=== PATIENT | female | born 1985 | race Caucasian/White ===

== ENCOUNTER 2016-10-12 08:22 | Emergency (ER) | payer BC ==
[~2016-10-12] VITALS: Ht 157.5 cm; Wt 53.1 kg
[2016-10-12 08:25] VITALS: BP 113/78; PULSE 88; RESP 16; TEMP 98.8; O2SAT 99
[2016-10-12 08:44] LABS: BLOOD, URINE LARGE (NEG); GLUCOSE,URINE NEG (NEG); KETONE, URINE NEG (NEG); NITRITE,URINE NEG (NEG)
[2016-10-12] MEDS ORDERED: ACETAMINOPHEN 325 MG TAB PO ONE (08:45)
[2016-10-12] MEDS ORDERED: ONDANSETRON ODT 4 MG TAB PO ONE (08:45)
--- NOTE | 2016-10-12 08:45 | PD ---
HPI Chief Complaint: Flank/Kidney Pain Time Seen by Provider: 08:37 Travel History International Travel<30 days: No Contact w/Intl Traveler<30days: No Traveled to known affect area: No History of Present Illness HPI This 31-year-old female is complaining of left flank pain. She says she woke up this morning around 5:30 with the pain. She had a similar pain 2 days ago. She has a history of kidney infection about 10 years ago. She is not aware of fever. She did have some chills this morning. She is a bit nauseated. She is currently breast-feeding a 6-month-old child PFSH Past Medical History Hx Anticoagulant Therapy: No Diabetes: No ?: Not Social History Tobacco Use: No Allergies-Medications (Allergen,Severity, Reaction): Coded Allergies: No Known Allergies (Unverified , 10/12/16) Reported Meds & Prescriptions Reported Meds & Active Scripts Active Reported Multivitamin Adults (Multiple Vitamins W/ Minerals) 1 Tab 1 Tab PO DAILY Review of Systems General / Constitutional: Positive: Chills, No: Fever Eyes: No: Diploplia, Blurred Vision HENT: No: Headaches, Vertigo Cardiovascular: No: Chest Pain or Discomfort, Palpitations Respiratory: No: Cough Gastrointestinal: Positive: Nausea, No: Vomiting, Diarrhea Genitourinary: Positive: Flank Pain Musculoskeletal: No: Myalgias, Arthralgias Skin: No Rash Neurologic: No: Weakness Psychiatric: No: Anxiety Endocrine: No: Heat Intolerance Physical Exam Narrative GENERAL: Well-developed female SKIN: Focused skin assessment warm/dry. HEAD: Atraumatic. Normocephalic. EYES: Pupils equal and round. No scleral icterus. No injection or drainage. ENT: No nasal bleeding or discharge. Mucous membranes pink and moist. NECK: Trachea midline. No JVD. CARDIOVASCULAR: Regular rate and rhythm. No murmur appreciated. RESPIRATORY: No accessory muscle use. Clear to auscultation. Breath sounds equal bilaterally. GASTROINTESTINAL: Abdomen soft, some left flank tenderness without guarding or rigidity, nondistended. Hepatic and splenic margins not palpable. MUSCULOSKELETAL: No obvious deformities. No clubbing. No cyanosis. No edema. NEUROLOGICAL: Awake and alert. No obvious cranial nerve deficits. Motor grossly within normal limits. Normal speech. PSYCHIATRIC: Appropriate mood and affect; insight and judgment normal. Data Data Last Documented VS Vital Signs Date Time Temp Pulse Resp B/P Pulse Ox O2 Delivery O2 Flow Rate FiO2 10/12/16 09:30 16 10/12/16 08:25 98.8 88 113/78 99 Orders Urinalysis - C+S If Indicated (10/12/16 08:27) Ed Urine Pregnancytest Poc (10/12/16 08:27) Ondansetron Odt (Zofran Odt) (10/12/16 08:45) Acetaminophen (Tylenol) (10/12/16 08:45) Ct Abd/Pel W/O Iv Contrast (10/12/16 09:00) Ibuprofen (Motrin) (10/12/16 09:15) Complete Blood Count With Diff (10/12/16 09:20) Basic Metabolic Panel (Bmp) (10/12/16 09:20) Labs Laboratory Tests Test 10/12/16 10/12/16 08:35 09:00 Urine Collection Type CLEAN CATCH Urine Color YELLOW Urine Turbidity CLEAR Urine pH 6.0 Urine Specific [place] 1.024 Urine Protein TRACE mg/dL Urine Glucose (UA) NEG mg/dL Urine Ketones NEG mg/dL Urine Occult Blood LARGE Urine Nitrite NEG Urine Bilirubin NEG Urine Leukocyte Esterase NEG Urine RBC 50-99 /hpf Urine WBC 3-5 /hpf Urine Squamous Epithelial > 8 /hpf Cells Urine Bacteria RARE /hpf Urine Yeast (Budding) MOD Microscopic Urinalysis Comment CULT NOT INDICATED Urine Collection Time 08:35 White Blood Count 10.0 TH/MM3 Red Blood Count 5.08 MIL/MM3 Hemoglobin 15.0 GM/DL Hematocrit 45.2 % Mean Corpuscular Volume 88.9 FL Mean Corpuscular Hemoglobin 29.5 PG Mean Corpuscular Hemoglobin 33.2 % Concent Red Cell Distribution Width 11.4 % Platelet Count 232 TH/MM3 Mean Platelet Volume 8.1 FL Neutrophils (%) (Auto) 81.1 % Lymphocytes (%) (Auto) 12.5 % Monocytes (%) (Auto) 4.9 % Eosinophils (%) (Auto) 0.8 % Basophils (%) (Auto) 0.7 % Neutrophils # (Auto) 8.0 TH/MM3 Lymphocytes # (Auto) 1.3 TH/MM3 Monocytes # (Auto) 0.5 TH/MM3 Eosinophils # (Auto) 0.1 TH/MM3 Basophils # (Auto) 0.1 TH/MM3 CBC Comment DIFF FINAL Differential Comment Sodium Level 141 MEQ/L Potassium Level 4.0 MEQ/L Chloride Level 106 MEQ/L Carbon Dioxide Level 24.8 MEQ/L Anion Gap 10 MEQ/L Blood Urea Nitrogen 18 MG/DL Creatinine 0.81 MG/DL Estimat Glomerular Filtration 82 ML/MIN Rate Random Glucose 93 MG/DL Calcium Level 8.8 MG/DL [facility] Medical Decision Making Medical Screen Exam Complete: Yes Emergency Medical Condition: Yes Medical Record Reviewed: Yes Differential Diagnosis Differential includes pyelonephritis, renal colic, musculoskeletal pain Narrative Course Urinalysis does show 50-99 red cells suggestive of possible stone. A CT of the abdomen and pelvis has been ordered. CT scan shows a 6.1 mm proximal left ureteral stone causing moderate hydronephrosis. Electrolytes are normal Diagnosis Primary Impression: Left ureteral calculus Referrals: Kirt Fay MD Departure Forms: Tests/Procedures Additional Instructions: Pump and dump if using Percocet, take Tylenol or ibuprofen for pain, force fluids, return if severe pain, follow up with urologist Scripts Oxycodone-Acetaminophen (Percocet)7.5-325 mg Tab1 Tab PO Q4H PRN (PAIN) #30 TAB Ref 0 Prov:Yovani Boland MD 10/12/16 Disposition: 01 DISCHARGE HOME Condition: Stable Yovani Boland MD October 12, 2016 08:45
[2016-10-12] MEDS ORDERED: MULT1TAB84 PO (08:46)
[2016-10-12 08:52] LABS: METHOD OF COLLECTION CLEAN CATCH; URINE COLOR YELLOW (YELLW/STRAW)
[2016-10-12 08:53] LABS: BACTERIA, URINE RARE /hpf; SQUAMOUS EPITHELIAL CELL URINE > 8 /hpf (0-5)
[2016-10-12 08:54] LABS: COMMENT (UR) CULT NOT INDICATED; CULTURE IF INDICATED CULT NOT INDICATED
[2016-10-12] MEDS ORDERED: IBUPROFEN 400 MG TAB PO ONE (09:15)
[2016-10-12 09:30] VITALS: RESP 16
--- NOTE | 2016-10-12 09:31 | RADHPO ---
EXAM DATE/TIME: 10/12/2016 09:06 [place] COMPARISON: No previous studies available for comparison. INDICATIONS : Left flank pain. ORAL CONTRAST: No oral contrast ingested. RADIATION DOSE: 5.84 CTDIvol (mGy) MEDICAL HISTORY : None SURGICAL HISTORY : None. ENCOUNTER: Initial ACUITY: 1 day PAIN SCALE: 6/10 LOCATION: Left flank TECHNIQUE: Volumetric scanning of the abdomen and pelvis was performed. Using automated exposure control and ad justment of the mA and/or kV according to patient size, radiation dose was kept as low as reasonably achievable to obtain optimal diagnostic quality images. FINDINGS: LOWER LUNGS: The visualized lower lungs are clear. LIVER: Homogeneous density without lesion. There is no dilation of the biliary tree. No calcified gallston es. SPLEEN: Normal size without lesion. PANCREAS: Within normal limits. KIDNEYS: 86.1 mm calculus is identified in the proximal left ureter at the L3 level. There is moderate distent ion of the left renal collecting system. The right kidney and collecting system are unremarkable. ADR ENAL GLANDS: Within normal limits. VASCULAR: There is no aortic aneurysm. BOWEL/MESENTERY: The stomach, small bowel, and colon demonstrate no acute abnormality. There is no free intraperitone al air or fluid. ABDOMINAL WALL: Within normal limits. RETROPERITONEUM: There is no lymphadenopathy. BLADDER: No wall thickening or mass. REPRODUCTIVE: Intrauterine device is in place. Within normal limits. INGUINAL: There is no lymphadenopathy or hernia. MUSCULOSKELETAL: Within normal limits for patient age. CONCLUSION: 6.1 mm proximal left ureteral stone causing moderate hydronephrosis. IUD. Alessandro Siddiqui MD on October 12, 2016 at 9:26 Board Certified Radiologist. This report was verified electronically.
[2016-10-12 09:39] LABS: BASOPHIL # 0.1 TH/MM3 (0-0.2); BASOPHIL % 0.7 % (0.0-2.0); EOSINOPHIL # 0.1 TH/MM3 (0-0.4); EOSINOPHIL % 0.8 % (0.0-4.0); HEMATOCRIT 45.2 % (35.0-46.0); LYMPH % 12.5 % (9.0-44.0); LYMPHOCYTE # 1.3 TH/MM3 (1.0-4.8); MEAN CELL VOLUME 88.9 FL (80.0-100.0); MEAN CORPUSCULAR HEMOGLOBIN 29.5 PG (27.0-34.0); MEAN CORPUSCULAR HGB CONC 33.2 % (32.0-36.0); MONO % 4.9 % (0.0-8.0); NEUT % 81.1 % (16.0-70.0); PLATELET COUNT 232 TH/MM3 (150-450); RED BLOOD COUNT 5.08 MIL/MM3 (4.00-5.30); RED CELL DISTRIBUTION WIDTH 11.4 % (11.6-17.2)
[2016-10-12 09:40] LABS: HEMO FLAGS DIFF FINAL
[2016-10-12 09:55] LABS: BICARBONATE 24.8 MEQ/L (21.0-32.0)
[2016-10-12] MEDS ORDERED: PERC7.5T13 PO (10:12)
[2016-10-12 10:22] VITALS: BP 118/70
== END 2016-10-12 10:23 | disposition home or self-care (01) ==
LOC: PHED 08:22
DX: N20.1 Calculus of ureter (principal); N13.30 Unspecified hydronephrosis
CPT/HCPCS: 74176; 80048; 81001; 84703; 85025